=== PATIENT | female | born 1935 | race Caucasian/White ===

== ENCOUNTER 2020-08-07 09:27 | Inpatient (IN) | payer MEDICARE, MEDICAID ==
[~2020-08-07] VITALS: Ht 162.6 cm; Wt 59.2 kg
--- NOTE | ~2020-08-07 | EMS ---
[place] [address] EMS Patient Care Report Name: SYL LEMOS Room: [place] [address] ADM IN M.R.#: [id number] Admission: 08/07/20 Attend Phys: Mami Leong MD Discharge: Date of : 34 Report #: [id number] THIS REPORT FOR: //name// Report Transmitted: 08/07/2020 14:07 EMS Care Summary [facility] Incident [id number] @ 08/07/2020 08:19 Incident Location [address] [place] [address] Patient SYL LEMOS Female, 85 Years 1935 Patient Address [address] [place] [address] Patient History Hyperlipidemia,Urinary Tract Infection (UTI),Type 2 Diabetes, Patient Allergies Other drug allergy, Patient Medications Acetaminophen, Dulcolax, Levothyroxine, Colace, Hydrochlorothiazide (Hctz), Tramadol, Docusate Sodium, Donepezil, Citalopram, Aspirin, Simvastatin, Clonidine, Namenda, Gabapentin, Chief Complaint Altered Mental Status Disposition Transported No Lights/[place] Dispatch Reason Altered Mental Status Transported To [facility] Narrative Dispatch: [facility] was dispatched for a patient at [facility] with an Altered Mental Status who is COVID positive. Med 1 copied tones, and began to dress in full COVID-19 PPE. Med 1 went en route non emergent, [place] [address] EMS Patient Care Report Name: SYL LEMOS Room: [place] [address] ADM IN .R.#: [id number] Admission: 08/07/20 Attend Phys: Mami Leong MD Discharge: Date of : 34 Report #: [id number] arrived on scene. Chief Complaint: Med 1 arrived on scene and was taken to the patient's room by the nursing staff. Patient was lying in her bed and was on 2 Liters of O2 via nasal canula. Patient appeared to be in some discomfort. Patient was alert to her name and event. Patient has a chief condition of Altered Mental Status and Diarrhea in the presence of COVID-19. Patient was already placed in a N95 mask prior to EMS arrival. History of present illness/HILDA: Patient received a positive covid test on 08/01/20. Patients mental status has slowly declined since receiving the results (normally A/Ox4), per [place] staff. Patient also has a history of UTI's and is a Type 2 diabetic. Per [facility] staff, the patient hasn't "eaten much" over the past few days and has had extreme diarrhea. Patient is not normally on oxygen, but was placed on 2 liters today by the SENIOR TECHNICAL RECRUITER due to decreased saturation. Assessment: Airway: Clear, patent, self maintained. Breathing: Clear and equal bilaterally, non labored. 2 Liters via nasal canula. Circulation: Skin is hot, warm, and dry. Strong radial pulse. Disability: A&OX2. Exposures: No life threats were found. Reason for ambulance: Patient has an altered mental status, diarrhea, decreased fluid and food intake, and is requiring 2 Liters of O2 in the presence of COVID 19. Patient transported to [place] for further care. Treatments: ALS assessment. 4 lead EKG. Two 20G IV attempts, both unsuccessful. 2 liters O2 nasal canula. See section for further. Summary: Meet Cardona arrived on scene at [facility] and was taken to the patients room by the SENIOR TECHNICAL RECRUITER. Upon arrival, the patient was lying on her bed and she did appear to be in mild discomfort. Patient was alert to her name and noted EMS presence. The SENIOR TECHNICAL RECRUITER gave myself and my partner report. She stated that the patient's mental status has slowly declined over the last day, along with her appetite. Patient has diarrhea as well. She stated that the patient does not normally require oxygen but is now on 2 liters nasal canula. The patient was then transferred to our cot and was placed onto our oxygen at 2 liters. Patient was then placed in the ambulance and we began our transport to [facility]. Two IV attempts were made but were unsuccessful. A 4 lead EKG was taken and vitals were monitored throughout transport. Radio report was given to [place] and no questions or orders were given. Patient condition remained unchanged throughout transport. Meet Cardona arrived at [place] and the patient was taken to room 4 in the ED where report was given to the RN Tianna. Patient was sheet transferred to bed. Signatures and paperwork were received. Meet Cardona returned back in service after full decon. [address] [address] EMS Patient Care Report Name: SYL LEMOS Room: [place] [address] ADM IN M.R.#: [id number] Admission: 08/07/20 Attend Phys: Mami Leong MD Discharge: Date of : 34 Report #: [id number] Initial Vitals @09:11P: 82,BP: 138/75,SpO2: 95, @09:16P: 82,ND Suspected: false @08:51P: 80, @08:56P: 82,BP: 126/78,ND Suspected: false @08:46P: 82,SpO2: 97, @09:06P: 82,SpO2: 95, @08:36P: 0,R: 18,BP: 152/86,GCS: 14,Temp: 100F,Glucose: 181,SpO2: 94,Revised Trauma: 12,ND Suspected: false @09:01P: 85,BP: 133/76,SpO2: 97, @08:41P: 88,BP: 118/79,SpO2: 97,ND Suspected: false Assessments @08:59MENTAL:Person Oriented,SKIN:Hot,HEENT:LUNG SOUNDS:General: Diarrhea,ABDOMEN:General: Diarrhea,PELVIS//GI:EXTREMITIES:PULSE:Radial: 2+ Normal,NEURO:@09:06MENTAL:Confused,Person Oriented,Event Oriented,SKIN:Hot,HEENT:LUNG SOUNDS:General: Diarrhea,ABDOMEN:General: Diarrhea,PELVIS//GI:EXTREMITIES:PULSE:Radial: 2+ Normal,NEURO: Impression COVID-19 - Confirmed by testing Procedures @08:30ALS AssessmentResponse: UnchangedSucceeded@08:46Saline Lock 0cc (20 ga) Site: Hand-RightResponse: UnchangedFailed@08:45Saline Lock cc (20 ga) Site: Antecubital-LeftResponse: UnchangedFailed@08:31Oxygen FlowRate: 2 Device: Nasal Cannula (NC) Response: ImprovedSucceeded Timeline 08:19,Call Received 08:19,Dispatched 08:25,En Route 08:29,On Scene 08:30,At Patient 08:30,ALS Assessment,Response: UnchangedSucceeded, 08:31,Oxygen FlowRate: 2 Device: Nasal Cannula (NC) Response: ImprovedSucceeded, 08:36,BP: 152/86 M,PULSE: 0,RR: 18 R,SPO2: 94 Ox,ETCO2: ,B,PAIN: ,GCS: 14, 08:41,BP: 118/79 M,PULSE: 88,RR: R,SPO2: 97 Ox,ETCO2: ,BG: ,PAIN: ,GCS: , 08:43,Depart Scene 08:45,Saline Lock cc 20 ga Site: Antecubital-Left,Response: UnchangedFailed, 08:46,Saline Lock 0cc 20 ga Site: Hand-Right,Response: UnchangedFailed, 08:46,BP: / M,PULSE: 82,RR: R,SPO2: 97 Ox,ETCO2: ,BG: ,PAIN: ,GCS: , 08:51,BP: / M,PULSE: 80,RR: R,SPO2: Ox,ETCO2: ,BG: ,PAIN: ,GCS: , 08:56,BP: 126/78 M,PULSE: 82,RR: R,SPO2: Ox,ETCO2: ,BG: ,PAIN: ,GCS: , [place] [address] EMS Patient Care Report Name: SYL LEMOS Room: [place] [address] ADM IN M.R.#: [id number] Admission: 08/07/20 Attend Phys: Maim Leong MD Discharge: Date of : 34 Report #: [id number] 09:01,BP: 133/76 M,PULSE: 85,RR: R,SPO2: 97 Ox,ETCO2: ,BG: ,PAIN: ,GCS: , 09:06,BP: / M,PULSE: 82,RR: R,SPO2: 95 Ox,ETCO2: ,BG: ,PAIN: ,GCS: , 09:11,BP: 138/75 M,PULSE: 82,RR: R,SPO2: 95 Ox,ETCO2: ,BG: ,PAIN: ,GCS: , 09:16,BP: / M,PULSE: 82,RR: R,SPO2: Ox,ETCO2: ,BG: ,PAIN: ,GCS: , 09:24,At Destination 10:11,Call Closed Disclaimer v1.1 Copyright 2020 [employer] This EMS Care Summary contains data elements from the applicable legal record (which may be displayed differently). It is designed to provide pertinent information for the following purposes: continuity of care, clinical quality, and state data reporting. The complete legal record is available to ED staff and administrators of the receiving hospital in [employer] Patient Tracker. All data is provided "as is."
[2020-08-07 09:39] VITALS: BP 162/90
[2020-08-07] MEDS ORDERED: SUPER THERAVIT1 EACH PO (09:48)
[2020-08-07] MEDS ORDERED: ASA81BEC PO (09:48)
[2020-08-07] MEDS ORDERED: DONEPEZIL HCL10 M1 PO (09:49)
[2020-08-07] MEDS ORDERED: VITAMIN B-125000 MCG PO (09:49)
[2020-08-07] MEDS ORDERED: SIMVASTATIN80 MG PO (09:49)
[2020-08-07] MEDS ORDERED: LEVO-T50 MCG PO (09:50)
[2020-08-07] MEDS ORDERED: NAMENDA 10 MG T10 MG PO (09:50)
[2020-08-07] MEDS ORDERED: DULCOLAX STOOL100 M1 PO ×2 (09:51→09:52)
[2020-08-07] MEDS ORDERED: COLACE100 MG PO (09:51)
[2020-08-07] MEDS ORDERED: CLONIDINE HCL0.2 M2 PO (09:53)
[2020-08-07] MEDS ORDERED: ORAL ANALGESIC9 GM MUCOUS MEM (09:53)
[2020-08-07] MEDS ORDERED: CELEXA 10 MG TA10 M1 PO (09:54)
[2020-08-07] MEDS ORDERED: HYDROCHLOROTHIA25 M2 PO (09:54)
[2020-08-07] MEDS ORDERED: TYLENOL 8 HOUR650 MG PO (09:54)
[2020-08-07] MEDS ORDERED: MELATONIN5 MG PO (09:55)
[2020-08-07] MEDS ORDERED: MIRALAX17 G1 PO (09:55)
[2020-08-07] MEDS ORDERED: MILK OF MA400 MG/5 M PO (09:56)
[2020-08-07] MEDS ORDERED: TRAMADOL 50 MG50 MG PO ×2 (09:56→09:57)
[2020-08-07] MEDS ORDERED: NEURONTIN 300M300 M2 PO (09:56)
[2020-08-07] MEDS ORDERED: COZAAR 25 MG TA25 M2 PO (09:56)
[2020-08-07 10:02] LABS: ABSOLUTE LYMPHOCYTES 0.8 thou/uL (0.8-5.3); ABSOLUTE MONOCYTES 0.4 thou/uL (0.0-1.2); ABSOLUTE NEUTROPHILS 5.7 thou/uL (1.6-8.1); BASOPHILS 0.5 %; EOSINOPHILS 0.2 %; HEMATOCRIT 35.5 % (37.0-47.0); HEMOGLOBIN 12.1 gm/dL (12.0-15.0); LYMPHOCYTES 11.8 %; MCH 30.7 pg (26.0-34.0); MCHC 34.2 g/dL (28.0-37.0); MCV 89.7 fL (80.0-100.0); MONOCYTES 5.7 %; MPV 7.3 fl. (7.2-11.1); NUCLEATED RBCS 0 /100WBC; PLATELET COUNT* 214 thou/uL (150-400); POLYS 81.8 %; RBC 3.95 mil/uL (4.20-5.00); RDW-CV 14.4 % (10.5-14.5)
[2020-08-07 10:07] LABS: PCO2 31.8 mmHg (35.0-45.0); PO2 106.3 mmHg (75.0-100.0)
[2020-08-07 10:08] LABS: CALCIUM 8.3 mg/dL (8.5-10.1); CREATININE 1.8 mg/dL (0.6-1.3); POTASSIUM 3.5 mmol/L (3.5-5.1)
[2020-08-07 10:14] LABS: ALBUMIN 3.4 g/dL (3.4-5.0); TOTAL BILIRUBIN 0.4 mg/dL (<0.1-1.0); TOTAL PROTEIN 6.9 g/dL (6.4-8.2)
[2020-08-07 10:35] LABS: URINE BILIRUBIN NEGATIVE (Negative); URINE BLOOD NEGATIVE (Negative); URINE CLARITY CLEAR; URINE COLOR YELLOW; URINE GLUCOSE-RANDOM NEGATIVE (Negative); URINE KETONES NEGATIVE (Negative); URINE LEUKOCYTES-REFLEX TRACE (Negative); URINE PROTEIN TRACE (Negative); URINE UROBILINOGEN 0.2 E.U./dl (0.2-1.0)
[2020-08-07 10:37] LABS: URINE NITRITE-REFLEX POSITIVE (Negative)
[2020-08-07 10:41] LABS: BACTERIA-REFLEX >30 Many /HPF (None Seen); CASTS None Seen /LPF (None Seen); CRYSTALS None Seen /LPF (None Seen); MUCUS None Seen strn/LPF (None Seen); SQUAMOUS 0-3 Few /LPF (0-3); URINE RBC 3-10 Few /HPF (0-2)
[2020-08-07 15:19] VITALS: BP 148/63
[2020-08-07 15:45] VITALS: BP 160/68
[2020-08-07 20:15] VITALS: BP 176/80
[2020-08-08] VITALS: BP 135/47
[2020-08-08 04:00] VITALS: BP 175/51
[2020-08-08 05:26] LABS: HEMOGLOBIN 10.6 gm/dL (12.0-15.0); MCH 30.8 pg (26.0-34.0); MCHC 34.3 g/dL (28.0-37.0); MCV 89.9 fL (80.0-100.0); MPV 7.1 fl. (7.2-11.1); RBC 3.45 mil/uL (4.20-5.00); RDW-CV 14.4 % (10.5-14.5)
[2020-08-08 05:44] LABS: ALBUMIN 2.9 g/dL (3.4-5.0); CALCIUM 7.6 mg/dL (8.5-10.1); CREATININE 1.1 mg/dL (0.6-1.3); MAGNESIUM 1.9 mg/dL (1.8-2.4); TOTAL BILIRUBIN 0.3 mg/dL (<0.1-1.0); TOTAL PROTEIN 5.9 g/dL (6.4-8.2)
[2020-08-08 05:49] LABS: POTASSIUM 2.8 mmol/L (3.5-5.1)
[2020-08-08 08:00] VITALS: BP 185/89
[2020-08-08 12:00] VITALS: BP 105/79
[2020-08-08 18:00] VITALS: BP 118/75
[2020-08-08 20:00] VITALS: BP 158/72
[2020-08-09] VITALS: BP 160/60
[2020-08-09 05:06] LABS: HEMATOCRIT 31.9 % (37.0-47.0); HEMOGLOBIN 10.9 gm/dL (12.0-15.0); MCH 30.7 pg (26.0-34.0); MCV 90.3 fL (80.0-100.0); MPV 7.9 fl. (7.2-11.1); RBC 3.53 mil/uL (4.20-5.00); RDW-CV 14.1 % (10.5-14.5); WBC 7.1 thou/uL (4.0-11.0)
[2020-08-09 05:19] VITALS: BP 148/56
[2020-08-09 05:25] LABS: MAGNESIUM 1.9 mg/dL (1.8-2.4)
[2020-08-09 05:28] LABS: POTASSIUM 3.9 mmol/L (3.5-5.1)
[2020-08-09 08:00] VITALS: BP 142/60
[2020-08-09 12:00] VITALS: BP 168/64
[2020-08-09 20:00] VITALS: BP 156/65
[2020-08-10] VITALS: BP 174/79
[2020-08-10 04:00] VITALS: BP 156/77
[2020-08-10 05:15] LABS: HEMATOCRIT 31.3 % (37.0-47.0); HEMOGLOBIN 10.8 gm/dL (12.0-15.0); MCH 30.5 pg (26.0-34.0); MCHC 34.5 g/dL (28.0-37.0); MCV 88.3 fL (80.0-100.0); MPV 7.8 fl. (7.2-11.1); RBC 3.55 mil/uL (4.20-5.00); RDW-CV 14.2 % (10.5-14.5); WBC 7.6 thou/uL (4.0-11.0)
[2020-08-10 05:51] LABS: ALBUMIN 2.9 g/dL (3.4-5.0); CALCIUM 8.2 mg/dL (8.5-10.1); MAGNESIUM 1.9 mg/dL (1.8-2.4); POTASSIUM 3.7 mmol/L (3.5-5.1); TOTAL BILIRUBIN 0.3 mg/dL (<0.1-1.0); TOTAL PROTEIN 5.8 g/dL (6.4-8.2)
[2020-08-10 08:20] VITALS: BP 153/59
[2020-08-10 12:00] VITALS: BP 146/79
[2020-08-10 16:10] VITALS: BP 166/86
[2020-08-10 20:00] VITALS: BP 143/51
[2020-08-11] VITALS: BP 126/50; BP 173/73
[2020-08-11 04:00] VITALS: BP 172/73
[2020-08-11 08:00] VITALS: BP 148/62
[2020-08-11 13:41] VITALS: BP 105/49
[2020-08-11 16:00] VITALS: BP 155/80
[2020-08-11 20:00] VITALS: BP 141/54
[2020-08-12] VITALS: BP 140/61
[2020-08-12 04:00] VITALS: BP 173/60
[2020-08-12 08:00] VITALS: BP 156/52
[2020-08-12 13:34] VITALS: BP 136/54
[2020-08-12 15:16] LABS: URINE BILIRUBIN NEGATIVE (Negative); URINE BLOOD NEGATIVE (Negative); URINE CLARITY CLEAR; URINE COLOR YELLOW; URINE GLUCOSE-RANDOM NEGATIVE (Negative); URINE KETONES NEGATIVE (Negative); URINE LEUKOCYTES-REFLEX NEGATIVE (Negative); URINE NITRITE-REFLEX NEGATIVE (Negative); URINE PROTEIN NEGATIVE (Negative); URINE UROBILINOGEN 0.2 E.U./dl (0.2-1.0)
[2020-08-12 17:14] VITALS: BP 179/95
[2020-08-12 20:00] VITALS: BP 124/64
[2020-08-13] VITALS: BP 142/52
[2020-08-13 04:00] VITALS: BP 158/65
[2020-08-13] MEDS ORDERED: LEVOFLOXACIN500 MG PO (07:52)
[2020-08-13] MEDS ORDERED: MEDROL4 M1 PO (07:52)
[2020-08-13] MEDS ORDERED: TRAMADOL 50 MG50 MG PO (07:52)
[2020-08-13 08:00] VITALS: BP 168/68
[2020-08-13 11:55] VITALS: BP 102/53
== END 2020-08-13 17:25 | DRG 177 ==
LOC: M.ERS 09:27 → M.TBA-ER 12:51 → M.2W 12:51
PROVIDERS: Personal Emergency Response Attendant; ADMIT Internal Medicine; ATTEND Internal Medicine
PROC: XW033E5 Introduction of Remdesivir Anti-infective into Peripheral Vein, Percutaneous Approach, New Technology Group 5 (ICD-10-PCS; principal; 2020-08-08)
PROC: XW033E5 Introduction of Remdesivir Anti-infective into Peripheral Vein, Percutaneous Approach, New Technology Group 5 (ICD-10-PCS; 2020-08-09)
PROC: XW033E5 Introduction of Remdesivir Anti-infective into Peripheral Vein, Percutaneous Approach, New Technology Group 5 (ICD-10-PCS; 2020-08-10)
PROC: XW033E5 Introduction of Remdesivir Anti-infective into Peripheral Vein, Percutaneous Approach, New Technology Group 5 (ICD-10-PCS; 2020-08-11)
PROC: XW033E5 Introduction of Remdesivir Anti-infective into Peripheral Vein, Percutaneous Approach, New Technology Group 5 (ICD-10-PCS; 2020-08-12)
DX: U07.1 COVID-19 (principal); G92 Toxic encephalopathy; N39.0 Urinary tract infection, site not specified; N17.9 Acute kidney failure, unspecified; F03.90 Unspecified dementia, unspecified severity, without behavioral disturbance, psychotic disturbance, mood disturbance, and anxiety; I10 Essential (primary) hypertension; E11.9 Type 2 diabetes mellitus without complications; B96.20 Unspecified Escherichia coli [E. coli] as the cause of diseases classified elsewhere; Z79.82 Long term (current) use of aspirin; Z79.899 Other long term (current) drug therapy; Z88.8 Allergy status to other drugs, medicaments and biological substances; Z23 Encounter for immunization

== ENCOUNTER 2020-10-15 19:01 | Emergency (ER) | payer MEDICARE, MEDICAID ==
[~2020-10-15] VITALS: Ht 152.4 cm; Wt 63.5 kg
--- NOTE | ~2020-10-15 | EMS ---
[place] [address] EMS Patient Care Report Name: SYL LEMOS Room: [facility] [place]#: [id number] Admission: 10/15/20 Attend Phys: Discharge: 10/15/20 Date of : 34 Report #: [id number] THIS REPORT FOR: //name// Report Transmitted: 10/19/2020 10:13 EMS Care Summary [facility] Incident [id number] @ 10/15/2020 18:05 Incident Location [address] Patient SYL LEMOS Female, 85 Years 1935 Patient Address [address] [place] [address] Patient History Diabetes,Kidney/Renal Failure,Alzheimer's,Urinary Tract Infection (UTI),Depression,Sepsis,Novel Coronavirus (COVID-19), Patient Allergies No known allergies, Patient Medications Citalopram, Levothyroxine, Tramadol, Clonidine, Donepezil, Gabapentin, Dulcolax, Hydrochlorothiazide (Hctz), Celebrex, ASA, Cozaar, Simvastatin, Chief Complaint " She's not breathing." Disposition Transported Lights/[place] Dispatch Reason Cardiac Arrest/ Transported To [facility] Narrative Dispatch: Med 1 response requested to [facility] for an unresponsive. Med 1 copied the call and began or response to the address. We arrived on scene and were met at the back bay by staff with a brief report. [place] [address] EMS Patient Care Report Name: SYL LMEOS [id number] Admission: 10/15/20 Attend Phys: Discharge: 10/15/20 Date of : 34 Report #: [id number] CPR to be in progress for the past 5 min. Chief complaint: Laying supine on the floor in the room we found our patient. Staff was noted to be ventilating the patient with a BVM. Compressions were in progress. We were advised patient to be a full code however staff spoke to her DPOA and requested that w work her 10 min only. History of present illness: Patient was assisted back from eating dinner that consisted of Country fried steak and potatoes. Patient complained of back pain and then shortness of air shortly after dinner. Staff left the patient to attend others to come back after 15 min to the patient in cardiac arrest. Patient was moved to the floor by staff and CPR initiated. Staff denied that the patient had been sick recently except shortly after dinner. She has had no medication changes. Assessment: Airway secured with a luis and ventilated with BVM using high flow oxygen. Skin was noted to be pink, warm and dry. There was no outward obvious trauma to the patient. Secondary assessment: Noted in tab Reason for transport: Patient required further medical treatment Treatment: ACLS treatments noted in tab Summary: While treating the patient according to cardiac arrest protocol the patient regained a pulse. A 12 lead ECG was completed. Patient was log rolled and secured on a back board. She was lifted and secured to the cot with all seat belts. Patient was then taken to the ambulance and placed inside. We began our transport emergent to [facility]. While en-route the patient lost her pulse and CPR was initiated. Patient was again treated according to cardiac arrest protocol. Radio report was given 15 min prior to arrival. Upon arrival to the ER patient was taken inside and to trauma 1. Patient was moved over to the ER bed while report was given to the DR. We advised that the last known rhythm to be asystole. Signatures were obtained and Med 1 cleared to return to service. Initial Vitals @18:42R: 8,Glucose: 171,EtCO2: 14, @18:59R: 12,GCS: 3,EtCO2: 5, @19:09P: 0,R: 14,GCS: 3,EtCO2: 18, @18:23R: 12,GCS: 3,EtCO2: 11, @18:48R: 12,GCS: 3,EtCO2: 18, @18:18R: 6,GCS: 3,Glucose: 180,EtCO2: 9, @18:11P: 0,R: 10,GCS: 3, @19:19R: 14,GCS: 3,EtCO2: 14, [place] [address] EMS Patient Care Report Name: SYL LEMOS Room: [facility] [place]#: [id number] Admission: 10/15/20 Attend Phys: Discharge: 10/15/20 Date of : 34 Report #: [id number] @18:37R: 10,GCS: 3,EtCO2: 14, Assessments @18:10MENTAL:Unresponsive,SKIN:HEENT:LUNG SOUNDS:ABDOMEN:PELVIS//GI:EXTREMITIES:PULSE:NEURO:@PRESS OFFBEARER Impression Cardiac arrest Procedures @18:4212-Lead ECGResponse: UnchangedSucceeded@18:36Response: ImprovedSucceeded@18:10Response: ImprovedSucceeded@18:13Lactated Ringers 500cc (EZ-IO (Blue 25mm)) Site: DU-Btnof-Rrstz DistalResponse: UnchangedSucceeded@18:12[place] Response: ImprovedSucceeded@18:14Epinephrine 1:10 - 1 Milligrams (mg) - Intraosseous (IO)Response: Unchanged@18:23Epinephrine 1:10 - 1 Milligrams (mg) - Intraosseous (IO)Response: Unchanged@18:55Epinephrine 1:10 - 1 Milligrams (mg) - Intraosseous (IO)Response: Unchanged@19:00Epinephrine 1:10 - 1 Milligrams (mg) - Intraosseous (IO)Response: Unchanged@18:28Epinephrine 1:10 - 1 Milligrams (mg) - Intraosseous (IO)Response: Unchanged@18:19Epinephrine 1:10 - 1 Milligrams (mg) - Intraosseous (IO)Response: Unchanged@19:06Epinephrine 1:10 - 1 Milligrams (mg) - Intraosseous (IO)Response: Unchanged@18:12Oxygen FlowRate: 15 Device: Bag Valve Mask (BVM) Response: ImprovedSucceeded@19:00Response: UnchangedSucceeded Timeline 18:05,Call Received 18:05,Dispatched 18:06,En Route 18:08,On Scene 18:10,At Patient 18:10,Response: ImprovedSucceeded, 18:11,BP: / M,PULSE: 0,RR: 10 R,SPO2: Ox,ETCO2: ,BG: ,PAIN: ,GCS: 3, 18:12,Luis Airway Response: ImprovedSucceeded, 18:12,Oxygen FlowRate: 15 Device: Bag Valve Mask (BVM) Response: ImprovedSucceeded, 18:13,Lactated Ringers 500cc EZ-IO (Blue 25mm) Site: CS-Twfbu-Ltfns Distal,Response: UnchangedSucceeded, 18:14,Epinephrine 1:10 - 1 Milligrams (mg) - Intraosseous (IO),Response: Unchanged 18:18,BP: / M,PULSE: ,RR: 6 R,SPO2: Ox,ETCO2: 9 ,B,PAIN: ,GCS: 3, 18:19,Epinephrine 1:10 - 1 Milligrams (mg) - Intraosseous (IO),Response: Unchanged 18:23,Epinephrine 1:10 - 1 Milligrams (mg) - Intraosseous (IO),Response: Unchanged 18:23,BP: / M,PULSE: ,RR: 12 R,SPO2: Ox,ETCO2: 11 ,BG: ,PAIN: ,GCS: 3, [place] [address] EMS Patient Care Report Name: SYL LEMOS [id number] Admission: 10/15/20 Attend Phys: Discharge: 10/15/20 Date of : 34 Report #: [id number] 18:28,Epinephrine 1:10 - 1 Milligrams (mg) - Intraosseous (IO),Response: Unchanged 18:36,Response: ImprovedSucceeded, 18:37,BP: / M,PULSE: ,RR: 10 R,SPO2: Ox,ETCO2: 14 ,BG: ,PAIN: ,GCS: 3, 18:42,12-Lead ECG,Response: UnchangedSucceeded, 18:42,BP: / M,PULSE: ,RR: 8 R,SPO2: Ox,ETCO2: 14 ,B,PAIN: ,GCS: , 18:47,Depart Scene 18:48,BP: / M,PULSE: ,RR: 12 R,SPO2: Ox,ETCO2: 18 ,BG: ,PAIN: ,GCS: 3, 18:55,Epinephrine 1:10 - 1 Milligrams (mg) - Intraosseous (IO),Response: Unchanged 18:59,BP: / M,PULSE: ,RR: 12 R,SPO2: Ox,ETCO2: 5 ,BG: ,PAIN: ,GCS: 3, 19:00,Response: UnchangedSucceeded, 19:00,Epinephrine 1:10 - 1 Milligrams (mg) - Intraosseous (IO),Response: Unchanged 19:06,Epinephrine 1:10 - 1 Milligrams (mg) - Intraosseous (IO),Response: Unchanged 19:09,BP: / M,PULSE: 0,RR: 14 R,SPO2: Ox,ETCO2: 18 ,BG: ,PAIN: ,GCS: 3, 19:15,At Destination 19:19,BP: / M,PULSE: ,RR: 14 R,SPO2: Ox,ETCO2: 14 ,BG: ,PAIN: ,GCS: 3, 19:41,Call Closed Disclaimer v1.1 Copyright 2020 [employer] This EMS Care Summary contains data elements from the applicable legal record (which may be displayed differently). It is designed to provide pertinent information for the following purposes: continuity of care, clinical quality, and state data reporting. The complete legal record is available to ED staff and administrators of the receiving hospital in [employer] Patient Tracker. All data is provided "as is."
[~2020-10-15 19:01] MED LIST: ASA81BEC PO; CELEXA 10 MG TA10 M1 PO; CLONIDINE HCL0.2 M2 PO; COLACE100 MG PO; COZAAR 25 MG TA25 M2 PO; DONEPEZIL HCL10 M1 PO; DULCOLAX STOOL100 M1 PO; HYDROCHLOROTHIA25 M2 PO; LEVO-T50 MCG PO; LEVOFLOXACIN500 MG PO; MEDROL4 M1 PO; MELATONIN5 MG PO; MILK OF MA400 MG/5 M PO; MIRALAX17 G1 PO; NAMENDA 10 MG T10 MG PO; NEURONTIN 300M300 M2 PO; ORAL ANALGESIC9 GM MUCOUS MEM; SIMVASTATIN80 MG PO; SUPER THERAVIT1 EACH PO; TRAMADOL 50 MG50 MG PO; TYLENOL 8 HOUR650 MG PO; VITAMIN B-125000 MCG PO
== END 2020-10-15 19:23 ==
LOC: M.ERS 19:01
DX: I46.9 Cardiac arrest, cause unspecified (principal); I10 Essential (primary) hypertension; E11.9 Type 2 diabetes mellitus without complications; Z88.8 Allergy status to other drugs, medicaments and biological substances; Z79.899 Other long term (current) drug therapy; Z79.82 Long term (current) use of aspirin